=== PATIENT | male | born 1965 | race Caucasian/White ===

== ENCOUNTER 2022-03-27 17:31 | Observation (INO) | payer OTHER, SELFPAY ==
[2022-03-27] VITALS (7 sets, daily range): BP systolic 114–140; BP diastolic 63–70; PULSE 71–87; RESP 16; TEMP 36.8; O2SAT 93–100; BMI 36.7
--- NOTE | 2022-03-27 18:08 | ED_ITS ---
HPI - Fall General Chief Complaint: Fall Stated Complaint: Fall, back pain, bone cancer Time Seen by Provider: 03/27/22 18:04 Source: patient Mode of arrival: EMS History of Present Illness HPI Narrative: 56-year-old male former smoker presents by EMS for evaluation of back pain after a fall. He states that he had been seen and evaluated at an outside facility about 1 week ago after falling and suffering significant pain in his back. Per the patient he had imaging which demonstrated an L4 fracture that was thought to be related to possibility of cancer is bone. He is in the process of evaluating this it and today was walking in his garage and had brief episode of a spasm in his low back which caused him to fall onto his knees, he had an episode of back pain again but is largely controlled. He has no head, and neck injury. He has no prodromal symptoms contributing to the fall such as dizziness, weakness or lightheadedness. He denies chest pain or shortness of breath. He has no fever or chills and takes no blood thinners. He denies loss of control of bowel or bladder. He denies any lower extremity weakness Related Data Allergies Allergy/AdvReac Type Severity Reaction Status Date / Time No Known Drug Allergies Allergy Verified 03/27/22 17:44 Review of Systems Review of Systems Narrative: GENERAL: Denies chills, fatigue, malaise, fever, sweats. HEENT: Denies sinus pain, ear pain, sore throat, difficulty swallowing, dizziness. RESPIRATORY: Denies dyspnea, cough, wheezing, hemoptysis, sputum. CARDIOVASCULAR: Denies chest pain, palpitations, orthopnea, edema, GASTROINTESTINAL: Denies nausea, vomiting, abdominal pain, diarrhea, constipation, melena. : Denies dysuria, frequency, incontinence, hematuria, urinary retention. MUSCULOSKELETAL: See HPI SKIN: Denies rash, skin lesions, or other NEUROLOGIC: Denies weakness, headache, numbness, change in speech, confusion, seizures, incoordination. PSYCHIATRIC: No concerning psychosocial issues. 12 point review of systems is negative except for those stated above Patient History Social History Smoking Status: Former smoker Smoking Status: Former smoker Substance Use Type: does not use Exam Narrative Exam Narrative: GENERAL: [56] year old patient appears stated age. Well-developed patient, in mild distress. HEAD: Atraumatic. Normocephalic. EYES: Pupils equal round and reactive. Extraocular motions intact. No scleral icterus. No injection or drainage. ENT: Nose without bleeding, purulent drainage. Throat without erythema, tonsillar hypertrophy or exudate. Airway patent. NECK: Trachea midline. Non tender CARDIOVASCULAR: Regular rate and rhythm without murmurs, gallops, or rubs. RESPIRATORY: Clear to auscultation. Breath sounds equal bilaterally. No wheezes, rales, or rhonchi. GASTROINTESTINAL: Abdomen soft, non-tender, nondistended. EXTREMITIES: No edema or joint tenderness. BACK: Midline tenderness in the lower lumbar region, no step-offs or crepitance, no saddle anesthesia, sensory deficits or lower extremity weakness, patellar reflexes 1+ bilaterally NEURO: AOx3. SKIN: No rash or erythema of visible areas Initial Vital Signs Initial Vital Signs: Vital Signs Temperature 98.2 F 03/27/22 17:31 Pulse Rate 78 03/27/22 17:31 Respiratory Rate 16 03/27/22 17:31 Blood Pressure 114/65 03/27/22 17:31 Pulse Oximetry 93 03/27/22 17:31 Course Orders Ordered: ED Orders 03/27/22 17:46 Complete Blood Count AUTO DIFF Stat Comprehensive Metabolic Panel Stat 03/27/22 18:18 CT lumbar spine wo con Stat CT pelvis wo con Stat 03/27/22 21:56 COVID19 -Nasal RAPID/Pre-Proc Stat Discontinued Medications Diazepam (Diazepam 10 Mg/2 Ml Syringe) 2 mg IV NOW ONE Stop: 03/27/22 20:57 Last Admin: 03/27/22 21:10 Dose: 2 mg Documented by: JAMES Hydromorphone HCl (Hydromorphone 1 Mg Inj) 1 mg IV NOW ONE Stop: 03/27/22 18:34 Last Admin: 03/27/22 18:35 Dose: 1 mg Documented by: RLAZANI Hydromorphone HCl (Hydromorphone 1 Mg Inj) 1 mg IV NOW ONE Stop: 03/27/22 19:14 Last Admin: 03/27/22 19:17 Dose: 1 mg Documented by: RLAZANI Hydromorphone HCl (Hydromorphone 1 Mg Inj) 1 mg IV NOW ONE Stop: 03/27/22 23:18 Last Admin: 03/27/22 23:20 Dose: 1 mg Documented by: JAMES Vital Signs Vital signs: Vital Signs - 8 hr 03/27/22 17:31 03/27/22 18:31 03/27/22 18:37 Temperature 98.2 F Pulse Rate 78 86 85 Respiratory Rate 16 Blood Pressure 114/65 126/70 Pulse Oximetry 93 100 99 03/27/22 19:00 03/27/22 19:30 03/27/22 20:00 Temperature Pulse Rate 84 87 71 Respiratory Rate Blood Pressure 130/64 137/63 140/67 Pulse Oximetry 100 99 98 03/27/22 20:30 Temperature Pulse Rate 82 Respiratory Rate Blood Pressure 140/68 Pulse Oximetry 99 MDM - Fall Lab Data Result diagrams: 03/27/22 17:46 03/27/22 17:46 Labs: Lab Results 03/27/22 03/27/22 03/27/22 Range/Units 17:46 17:46 21:56 WBC 12.3 H (4.5-11.0) X10^3/uL RBC 3.73 L (4.5-5.9) X10^6/uL Hgb 11.4 L (13.5-17.5) g/dL Hct 33.9 L (41-53) % MCV 90.8 (80-100) fL MCH 30.6 (26-34) PG MCHC 33.7 (30-36) % RDW 19.4 H (11.6-14.8) % Plt Count 250 (150-400) X10^3/uL Neut % (Auto) Not Reportable Lymph % (Auto) Not Reportable [place] % (Auto) Not Reportable Eos % (Auto) Not Reportable Baso % (Auto) Not Reportable Lymph # (Auto) Not Reportable [place] # (Auto) Not Reportable Baso # (Auto) Not Reportable Total Counted 100 Seg Neutrophils % 36.0 L (38-70) % Band Neutrophils % 9.0 H (3-7) % Lymphocytes % (Manual) 41.0 (25-45) % Monocytes % (Manual) 9.0 (2-11) % Eosinophils % (Manual) 2.0 (2-4) % Metamyelocytes % 2.0 H (-0) % Myelocytes % 1.0 H (-0) % Neutrophils # (Manual) 5535 (2752-1268) /uL RBC Morphology See below Anisocytosis 2+ H Sodium 136 L (137-145) mmol/L Potassium 4.3 (3.4-5.1) mmol/L Chloride 106 (98-107) mmol/L Carbon Dioxide 21 L (22-32) mmol/L BUN 21 H (9-20) mg/dL Creatinine 0.93 (0.66-1.25) mg/dL Estimated GFR > 60 (>60) mL/min BUN/Creatinine Ratio 22.6 H (6-22) Glucose 102 H (70-100) mg/dL Calcium 8.5 (8.4-10.2) mg/dL Total Bilirubin 0.5 (0.2-1.3) mg/dL AST 33 (17-59) IU/L ALT 32 (<50) IU/L Alkaline Phosphatase 59 (38-126) U/L Total Protein 12.2 H (6.3-8.2) g/dL Albumin 4.0 (3.5-5.0) g/dL Globulin 8.2 H (1.7-4.1) g/dL Albumin/Globulin Ratio 0.5 L (1.0-2.8) SARS-CoV-2 (PCR) Negative (Negative) Imaging Data Lumbar CT: Radiologist's Impression: [place] [address] CT Scan Report Signed Patient: Ang Metcalf MR#: [id number] : 1965 Acct:[id number] Age/Sex: 56 / M Date of Service: 03/27/22 Loc: ED Accession Number: [id number] ?? Procedure: CT lumbar spine wo con Ordering Provider: Paul Watkins D.O. PROCEDURE:? CT LUMBAR SPINE WO CON ? INDICATIONS:? fall with back pain, report of pathologic fracture ? TECHNIQUE:? Noncontrast 3 mm thick sections acquired from the T12 level to the sacrum.? Sagittal and coronal reformats were constructed.? For radiation dose reduction, the following was used:? automated exposure control.? ? COMPARISON:? None. ? FINDINGS:? Diffuse abnormal appearance of the bone marrow with decreased mineralization and trabeculation.? There are innumerable small lytic lesions as well as a few larger lytic lesions for example in the anterior L4 vertebral body.? Adjacent to this anterior L4 vertebral body lesion there is Schmorl node with an area of full-thickness cortical destruction and cortical defect as well what appears to be a displaced cortical fragment. ?Findings are suspicious for pathologic fracture.? Vertebral body heights are otherwise maintained.? Angulation of the right L3 transverse process may represent a fracture but appears to be remote regional soft tissues are unremarkable absence of IV contrast.? Aortic atherosclerosis. ? ? IMPRESSION:? ? Diffusely abnormal appearance of the bone marrow suggestive of metastatic disease or potentially multiple.? Numerous discrete lytic lesions are presumed to represent metastatic disease.? There is an acute pathologic fracture suspected involving the inferior L4 endplate to adjacent to a prominent lytic lesion.? ? Dictated by: Cyrus Rainey M.D. on 03/27/2022 at 19:57 ? ? Approved by: Cyrus Rainey M.D. on 03/27/2022 at 20:01 ? CT scan - abdomen/pelvis: Radiologist's Impression: [place] [address] CT Scan Report Signed Patient: Ang Metcalf MR#: [id number] : 1965 Acct:[id number] Age/Sex: 56 / M Date of Service: 03/27/22 Loc: ED Accession Number: [id number] ?? Procedure: CT pelvis wo con Ordering Provider: Paul Watkins D.O. PROCEDURE:? CT PEL WO CON ? INDICATIONS:? fall with pathologic fracture of L4 ? TECHNIQUE:? After the administration of oral contrast, 5 mm thick sections acquired from the iliac crests to the symphysis.? 5 mm coronal and sagittal reformats were then perf ormed.? For radiation dose reduction, the following was used:? automated exposure control, adjustment of mA and/or kV according to patient size.? ? COMPARISON:? None. ? FINDINGS:? L4 inferior endplate fracture with pathologic lesion, described greater detail in the lumbar spine CT report.? The bony pelvic ring appears intact with no evidence of pelvic fracture or proximal femur fracture regional soft tissues are within limits. ? IMPRESSION:? No acute fracture in the pelvis.? L4 pathologic fracture described in greater detail on the lumbar spine CT report. ? ? Dictated by: Cyrus Rainey M.D. on 03/27/2022 at 20:02 ? ? Approved by: Cryus Rainey M.D. on 03/27/2022 at 20:03 ? [facility] Narrative Medical decision making narrative: 56-year-old male with known pathologic fracture of L4 has been referred but has not yet seen anybody for tissue diagnosis or definitive management presents to us because of a fall today as a consequence of this pain. He has no neurologic symptoms such as loss of control of bowel or bladder, numbness, tingling or weakness of his lower extremities. He has been referred to Oncology at [facility]. He was diverted here by EMS as the closest facility did not have access to Orthopedic surgery. Is images confirmed the diagnosis that was related to us, there are no findings suggesting a neurologic or orthopedic surgical emergency, however despite our best efforts with various medications he is unable to sit up and get off the car due to pain let alone ambulate. He will have to be admitted for pain control Discharge Plan Departure Patient Disposition: Admitted as Observation Clinical Impression: Compression fx, lumbar spine, Pathologic compression fracture of lumbar vertebra Admit Date/Time: 03/27/22 22:58 Admit Provider: Yamilka Rios
--- NOTE | 2022-03-27 18:18 | DI.CT.S_ITS ---
PROCEDURE: CT PEL WO CON INDICATIONS: fall with pathologic fracture of L4 TECHNIQUE: After the administration of oral contrast, 5 mm thick sections acquired from the iliac crests to the symphysis. 5 mm coronal and sagittal reformats were then performed. For radiation dose reduction, the following was used: automated exposure control, adjustment of mA and/or kV according to patient size. COMPARISON: None. FINDINGS: L4 inferior endplate fracture with pathologic lesion, described greater detail in the lumbar spine CT report. The bony pelvic ring appears intact with no evidence of pelvic fracture or proximal femur fracture regional soft tissues are within limits. IMPRESSION: No acute fracture in the pelvis. L4 pathologic fracture described in greater detail on the lumbar spine CT report. Dictated by: Cyrus Rainey M.D. on 03/27/2022 at 20:02 Approved by: Cyrus Rainey M.D. on 03/27/2022 at 20:03
--- NOTE | 2022-03-27 18:18 | DI.CT.S_ITS ---
PROCEDURE: CT LUMBAR SPINE WO CON INDICATIONS: fall with back pain, report of pathologic fracture TECHNIQUE: Noncontrast 3 mm thick sections acquired from the T12 level to the sacrum. Sagittal and coronal reformats were constructed. For radiation dose reduction, the following was used: automated exposure control. COMPARISON: None. FINDINGS: Diffuse abnormal appearance of the bone marrow with decreased mineralization and trabeculation. There are innumerable small lytic lesions as well as a few larger lytic lesions for example in the anterior L4 vertebral body. Adjacent to this anterior L4 vertebral body lesion there is Schmorl node with an area of full-thickness cortical destruction and cortical defect as well what appears to be a displaced cortical fragment. Findings are suspicious for pathologic fracture. Vertebral body heights are otherwise maintained. Angulation of the right L3 transverse process may represent a fracture but appears to be remote regional soft tissues are unremarkable absence of IV contrast. Aortic atherosclerosis. IMPRESSION: Diffusely abnormal appearance of the bone marrow suggestive of metastatic disease or potentially multiple. Numerous discrete lytic lesions are presumed to represent metastatic disease. There is an acute pathologic fracture suspected involving the inferior L4 endplate to adjacent to a prominent lytic lesion. Dictated by: Cyrus Rainey M.D. on 03/27/2022 at 19:57 Approved by: Cyrus Rainey M.D. on 03/27/2022 at 20:01
[2022-03-27] MEDS: HYDROMORPHONE 1 MG INJ IV ×3 (18:35→23:20)
--- NOTE | 2022-03-27 20:39 | PC.NURSE ---
Pt laying supine and flat in bed, educated pt on ambulation trial per Dr. Watkins order. Pt pressed button to to elevate head of bed, elevated less than an inch and pt screamed in pain, body noted to tense, and pt lowered head of bed. Pt reports excruciating pain with attempt and expressed concern for ambulation attempt. Dr. Watkins notified.
[2022-03-27] MEDS: diazePAM 10 MG/2 ML SYRINGE 2 MG IV (21:10)
--- NOTE | 2022-03-27 21:49 | PC.NURSE ---
Attempted to get patient up for ambulation trial, cannot even move in bed without pain. Notified provider.
[2022-03-27 22:16] LABS: Alanine Aminotransferase 32 IU/L (<50); Alkaline Phosphatase 59 U/L (38-126); Aspartate Aminotransferase 33 IU/L (17-59); BUN Creatinine Ratio 22.6 (6-22); Bilirubin Total 0.5 mg/dL (0.2-1.3); Blood Urea Nitrogen 21 mg/dL (9-20); Calcium 8.5 mg/dL (8.4-10.2); Carbon Dioxide 21 mmol/L (22-32); Chloride 106 mmol/L (98-107); Estimated Glomerular Filt Rate > 60 mL/min (>60); Glucose 102 mg/dL (70-100); Potassium 4.3 mmol/L (3.4-5.1); Sodium 136 mmol/L (137-145)
[2022-03-27 22:20] LABS: Hematocrit 33.9 % (41-53); Hemoglobin 11.4 g/dL (13.5-17.5); Mean Corpuscular HGB Conc 33.7 % (30-36); Mean Corpuscular Hemoglobin 30.6 PG (26-34); Mean Corpuscular Volume 90.8 fL (80-100); Platelet Count 250 X10^3/uL (150-400); Red Blood Cell Count 3.73 X10^6/uL (4.5-5.9); Red Cell Distribution Width 19.4 % (11.6-14.8); White Blood Cell Count 12.3 X10^3/uL (4.5-11.0)
[2022-03-27 22:26] LABS: Add Manual Diff / Slide Review YES
[2022-03-27 22:27] LABS: Albumin Globulin Ratio 0.5 (1.0-2.8); Globulin 8.2 g/dL (1.7-4.1)
[2022-03-27 22:28] LABS: HEMOLYSIS 59 (0-50)
[2022-03-27 22:38] LABS: Total Protein 12.2 g/dL (6.3-8.2)
[2022-03-27 23:00] LABS: COVID19 -Nasal RAPID Negative (Negative)
[2022-03-27 23:39] LABS: Total Cells Counted 100
[2022-03-27 23:40] LABS: Anisocytosis 2+; Neutrophils Absolute Manual 5535 /uL (3000-5900)
[2022-03-28 00:19] VITALS: BP 149/88; PULSE 98; RESP 17; TEMP 36; O2SAT 90
--- NOTE | 2022-03-28 00:56 | P.HP_ITS ---
History of Present Illness History of Present Illness Date Patient Seen: 03/28/22 Time Patient Seen: 00:15 Chief complaint: Fall, back pain, bone cancer Narrative: Ang Metcalf is a 56 y.o. male who takes medications for hypertension, hld, and diabetes type 2, recently diagnosed with bone cancer was out in his garage when he got up to go to the bathroom when he felt a spasm in his back, fell to his knees and was unable to get up. ED reportedly tried to provide pain management with the hopes of discharging him back to home, but he was unable to ambulate. Back imaging performed at [facility] indicated lytic lesions in his lumbar spine per the ED provider, and he states was referred to an oncologist in [place], but does not recall the name. He was to go for his first appointment this coming Sunday. Patient does endorse having a lot of lumbar back pain and spasming. He denies headaches, difficulty swallowing, shortness of breath, chest pain, nausea or vomiting, abdominal pain, changes in bladder or bowel control, though he does endorse having occasional constipation, numbing or tingling of his upper lower extremities. He does not know how well his diabetes is controlled. He states that he relies on his to understand his health problems and directions for care. CT of the lumbar spine reported diffusely abnormal appearance to the bone marrow suggestive of metastatic disease, numerous discrete lytic lesions and an acute pathologic fracture involving the inferior L4 endplate adjacent to a prominent lytic lesion. Pelvis CT did not indicate any additional lytic lesions or abnormalities. Patient is afebrile, blood pressure 149/88, heart rate 98, respiratory rate 17, oxygen saturation of 90% on room air, he weighs 116.2 kg with a BMI of 36.7. He has a mildly elevated white count of 12.3, hemoglobin and hematocrit were 11.4 and 33.9 respectively, he does have a bandemia of 9%, abnormal peripheral smear, sodium 136, bicarb 21, glucose 102, A1c is 7.4, total protein was 12.2, globulin 8.2, and the ratio was 0.5, COVID-19 PCR was negative. Patient History Medical History Diabetes type 2, controlled Family & Social History Family history unavailable: Yes (Adopted.) Safety & Behavioral: Feels Safe in Current Yes Environment Been Physically Hurt or No Threatened By a Person Tobacco & Substance use: Smoking Status Former smoker, quit mid January 2022 Substance Use Type does not use Meds Home Medications and Allergies Allergies Allergy/AdvReac Type Severity Reaction Status Date / Time No Known Drug Allergies Allergy Verified 03/27/22 17:44 Review of Systems Review of Systems ROS: Yes All systems reviewed with the patient and are negative except as otherwise documented Exam Vital Signs (past 8 hours): - 03/27/22 17:31 03/27/22 18:31 03/27/22 18:37 Temperature 98.2 F Pulse Rate 78 86 85 Respiratory Rate 16 Blood Pressure 114/65 126/70 Pulse Oximetry 93 100 99 03/27/22 19:00 03/27/22 19:30 03/27/22 20:00 Temperature Pulse Rate 84 87 71 Respiratory Rate Blood Pressure 130/64 137/63 140/67 Pulse Oximetry 100 99 98 03/27/22 20:30 03/28/22 00:19 Temperature 96.8 F L Pulse Rate 82 98 H Respiratory Rate 17 Blood Pressure 140/68 149/88 H Pulse Oximetry 99 90 L Oxygen Delivery Method Room Air Objective Labs Result Diagrams: 03/27/22 17:46 03/27/22 17:46 Labs: Laboratory Results - last 24 hr 03/27/22 03/27/22 03/27/22 17:46 17:46 21:56 WBC 12.3 H RBC 3.73 L Hgb 11.4 L Hct 33.9 L MCV 90.8 MCH 30.6 MCHC 33.7 RDW 19.4 H Plt Count 250 Neut % (Auto) Not Reportable Lymph % (Auto) Not Reportable [place] % (Auto) Not Reportable Eos % (Auto) Not Reportable Baso % (Auto) Not Reportable Lymph # (Auto) Not Reportable [place] # (Auto) Not Reportable Baso # (Auto) Not Reportable Total Counted 100 Seg Neutrophils % 36.0 L Band Neutrophils % 9.0 H Lymphocytes % (Manual) 41.0 Monocytes % (Manual) 9.0 Eosinophils % (Manual) 2.0 Metamyelocytes % 2.0 H Myelocytes % 1.0 H Neutrophils # (Manual) 5535 RBC Morphology See below Anisocytosis 2+ H Sodium 136 L Potassium 4.3 Chloride 106 Carbon Dioxide 21 L BUN 21 H Creatinine 0.93 Estimated GFR > 60 BUN/Creatinine Ratio 22.6 H Glucose 102 H Calcium 8.5 Total Bilirubin 0.5 AST 33 ALT 32 Alkaline Phosphatase 59 Total Protein 12.2 H Albumin 4.0 Globulin 8.2 H Albumin/Globulin Ratio 0.5 L SARS-CoV-2 (PCR) Negative Assessment & Plan Assessment & Plan narrative: Ang Metcalf is observed overnight for pain control associated with bone cancer. 1. Recent and new diagnosis of bone cancer, acute, present on admission * Pain control with scheduled Tylenol, IV morphine, and Percocet * Oral diazepam for spasms as needed * Attempt [facility] to find out which oncologist he was referred to * In absence of a local oncologist will need to refer to Oncology group here at [facility] 2. Diabetes type 2 with poor control * Start glargine 5 units in the morning with low dose correctional scale insulin * Carb controlled diet 3. Essential hypertension, chronic * Continue home doses of losartan 100 mg p.o. daily, and metoprolol succinate 100 mg p.o. daily 4. Dyslipidemia, chronic * Continue home dose of atorvastatin 10 mg p.o. at bedtime VTE Prophylaxis: Wells risk score 2.5[X]Enoxaparin 40 mg subQ once daily Bilateral SCDs Patient is placed into observation as his stay is not expected to exceed 2 midnights. FEN: IV fluids: saline lock, diet: carb controlled, labs: CBC, C/BMP, liver enzymes, [facility] None care and involvement in the patient?s care is appreciated. Dispo: Probable discharge to home Code status: full code as discussed with the patient who identifies his , Juju Metcalf as his surrogate and POA. [X] I have utilized all available immediate resources to obtain, update, or review of the patient's current medications Scores Wells' Criteria for PE Clinical signs and symptoms of DVT: No PE is #1 Dx or equally likely: No Heart rate > 100: Yes Immobilization at least 3 days or surg in previous 4 weeks: No History of PE or DVT: No Hemoptysis: No Malignancy w/Treatment within 6 months or palliative: Yes Wells' PE Score total: 2.5 Quality VTE Deep Vein Thrombosis/Pulmonary Embolism Present on Admission: No MIPS - Admit I confirm the patient?s Advance Care Plan is present, Code status is documented, Surrogate decision maker is in patient?s record [If Yes, STOP here]: Yes MIPS - DC The patient has current or prior documentation of left ventricular ejection fraction (LVEF) less than 40%, or moderate or severely depressed left ventric ular systolic function.: No
[2022-03-28] MEDS: diazePAM 5 MG TABLET PO ×4 (02:01→20:39)
[2022-03-28] MEDS: OXYCODONE/ACETAMINOPHEN 5/325 TABLET 2 TAB PO ×2 (02:01→09:00)
[2022-03-28 02:12] LABS: Hemoglobin A1C% w Est Avg Glu 7.4 % (4.0-6.0)
[2022-03-28] MEDS: ACETAMINOPHEN 325 MG TABLET 650 MG PO ×3 (05:07→23:46)
[2022-03-28] MEDS: TRAMADOL 50 MG TABLET PO ×2 (05:07→14:11)
--- NOTE | 2022-03-28 06:09 | PC.NURSE ---
Pt arrived from ED in pain, pt was medicated before leaving ED. Pt cannot tolerate any movement and cries out in pain flailing his arms when moved. Pt was medicated throughout the night, but suffers from back spasms and cries out in pain although all pain meds are on board. Pt is unable to tolerate turning to do skin check at this time. Pt denies any open sores, or rashes. Will pass on information to day shift.
[2022-03-28 06:26] LABS: Alanine Aminotransferase 33 IU/L (<50); Albumin 4.1 g/dL (3.5-5.0); Alkaline Phosphatase 75 U/L (38-126); Aspartate Aminotransferase 31 IU/L (17-59); Bilirubin Total 0.5 mg/dL (0.2-1.3); Bilirubin Unconjugated 0.3 mg/dL (0.0-1.1); HEMOLYSIS < 15 (0-50)
[2022-03-28 06:43] LABS: Albumin Globulin Ratio 0.5 (1.0-2.8); Globulin 8.4 g/dL (1.7-4.1); Total Protein 12.5 g/dL (6.3-8.2)
[2022-03-28 08:00] VITALS: BP 147/98; PULSE 102; RESP 18; TEMP 35.9; O2SAT 96
--- NOTE | 2022-03-28 08:28 | DI.MRI.S_ITS ---
PROCEDURE: MR LUMBAR SPINE WO/W CON INDICATIONS: l4 fracture, epidural/spinal cord involved? TECHNIQUE: Noncontrast sagittal T1 spin echo and T2 fast spin echo, sagittal STIR, axial T1 and T2 fast spin echo through the lumbar spine. In cases with scoliosis, additional coronal T2 fast spin echo may be performed. After the administration of contrast, sagittal and axial T1 spin echo with fat saturation through the lumbar spine. COMPARISON: [facility], CT, CT LUMBAR SPINE WO CON, 03/27/2022, 19:13. FINDINGS: Enhancing low T1 marrow signal intensity focus in the anterior L4 vertebral body is consistent with an underlying pathologic lesion. There is disruption of the inferior endplate centered on a Schmorl node adjacent to the lesion, likely representing a pathologic fracture. Only mild bone marrow edema is present. When compared with the examination performed yesterday, there appears to be new vertebral body height loss at T12 with suggestion of low T1/T2 signal intensity fracture lines in the T12 vertebral body as well as some low-level edema and enhancement. Findings are suspicious for an additional pathologic fracture. No spinal canal or neural foraminal stenosis at any level in the lumbar spine. No pathologic epidural enhancement appreciated. IMPRESSION: No spinal canal stenosis, neural foraminal stenosis, or abnormal epidural enhancement. Enhancing presumed metastatic disease in the L4 vertebral body with an associated pathologic fracture. Probable mild pathologic fracture in the T12 vertebral body, new from yesterday. Dictated by: Cyrus Rainey M.D. on 03/28/2022 at 16:02 Approved by: Cyrus Rainey M.D. on 03/28/2022 at 16:07
[2022-03-28] MEDS: ENOXAPARIN 40 MG/0.4 ML SYRINGE SUBCUT (09:00)
[2022-03-28] MEDS: DOCUSATE 100 MG CAPSULE PO ×2 (09:00→20:39)
[2022-03-28 09:11] VITALS: O2SAT 93
--- NOTE | 2022-03-28 09:35 | CM.DANOTE ---
Patient is a 56 yo male who was admitted on 03/27/22 for Fall/Pain/Bone CA. Pt has REG PPO for insurance and his PCP is Reyna Shaver. EMR was reviewed. Per MD, pt with hx of hypertension, diabetes type 2, and recent bone CA dx. Pt admitted for intractable pain, lesion in back, spasms, and inability to ambulate. Pt was referred from [facility] to Oncology in [place] and pt has his first appointment scheduled this week tomorrow Wed to determine POC and tx options. SW attempted to meet with pt but Imaging in room bedside explaining upcoming MRI later today. Pt lives in [place] with his spouse and is typically independent with ADL's. Plan: SW to follow closely for MRI results and bedside assessment towards determining possible PT eval and discharge needs. 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 No Advance Directives on File No History Provided By Patient,Significant Other, Medical Record Has Patient been admitted in last 30 No days? Prior Living Arrangements Apartment/Condo Household Members spouse Type of transporation used prior to Drives own vehicle admit Independent with ADL's Yes Is patient alert and oriented? Yes Needs Assistance With Home Chores / Shopping Caregiver for Another No Comment Pending pain management and PT eval Barriers to Discharge Yes Comment Pain control and ability to ambulate Discharge Plan Home Transportation Arrangement Spouse can transport at d/c Additional Comment Pending progress and needs Whiteboard Updated in Patient Room with Yes name and ext. # of Cloth Dye Range Operator Review Status In Process Please Provide Date Initial DC 03/28/22 Assessment Was Performed Next Review Type Continued Stay Review
[2022-03-28] MEDS: MORPHINE 4 MG/ML INJ IV ×3 (17:09→23:45)
[2022-03-28 19:00] VITALS: O2SAT 95
[2022-03-28] MEDS: dexAMETHasone 4 MG TABLET 20 MG PO (19:15)
[2022-03-28 19:27] VITALS: O2SAT 95
--- NOTE | 2022-03-28 19:57 | PM.PN.1 ---
Subjective Subjective Date Patient Seen: 03/28/22 Time Patient Seen: 08:00 Interval history: His pain control is quite poor. He has pain in the center of his spine over his vertebra. No leg weakness, no saddle anesthesia, no incontinence. Exam Vital Signs (past 8 hours): - 03/28/22 19:27 Pulse Oximetry 95 Oxygen Delivery Method Room Air Oxygen Flow Rate 2 Narrative Exam Narrative: GEN: no acute distress CV: regular rate and rhythm PULM: clear bilaterally ABD: soft, nontender, nondistended, no organomegaly BACK: tender to palpation over spine in mid back and lower back Objective Labs Result Diagrams: 03/27/22 17:46 03/27/22 17:46 Labs: Laboratory Results - last 24 hr 03/27/22 03/27/22 03/27/22 17:46 17:46 17:46 WBC 12.3 H RBC 3.73 L Hgb 11.4 L Hct 33.9 L MCV 90.8 MCH 30.6 MCHC 33.7 RDW 19.4 H Plt Count 250 Neut % (Auto) Not Reportable Lymph % (Auto) Not Reportable Delta % (Auto) Not Reportable Eos % (Auto) Not Reportable Baso % (Auto) Not Reportable Lymph # (Auto) Not Reportable [place] # (Auto) Not Reportable Baso # (Auto) Not Reportable Total Counted 100 Seg Neutrophils % 36.0 L Band Neutrophils % 9.0 H Lymphocytes % (Manual) 41.0 Monocytes % (Manual) 9.0 Eosinophils % (Manual) 2.0 Metamyelocytes % 2.0 H Myelocytes % 1.0 H Neutrophils # (Manual) 5535 RBC Morphology See below Anisocytosis 2+ H Sodium 136 L Potassium 4.3 Chloride 106 Carbon Dioxide 21 L BUN 21 H Creatinine 0.93 Estimated GFR > 60 BUN/Creatinine Ratio 22.6 H Glucose 102 H Hemoglobin A1c 7.4 H Calcium 8.5 Total Bilirubin 0.5 Conjugated Bilirubin Unconjugated Bilirubin AST 33 ALT 32 Alkaline Phosphatase 59 Total Protein 12.2 H Albumin 4.0 Globulin 8.2 H Albumin/Globulin Ratio 0.5 L SARS-CoV-2 (PCR) 03/27/22 03/28/22 21:56 04:54 WBC RBC Hgb Hct MCV MCH MCHC RDW Plt Count Neut % (Auto) Lymph % (Auto) Delta % (Auto) Eos % (Auto) Baso % (Auto) Lymph # (Auto) Delta # (Auto) Baso # (Auto) Total Counted Seg Neutrophils % Band Neutrophils % Lymphocytes % (Manual) Monocytes % (Manual) Eosinophils % (Manual) Metamyelocytes % Myelocytes % Neutrophils # (Manual) RBC Morphology Anisocytosis Sodium Potassium Chloride Carbon Dioxide BUN Creatinine Estimated GFR BUN/Creatinine Ratio Glucose Hemoglobin A1c Calcium Total Bilirubin 0.5 Conjugated Bilirubin 0.0 Unconjugated Bilirubin 0.3 AST 31 ALT 33 Alkaline Phosphatase 75 Total Protein 12.5 H Albumin 4.1 Globulin 8.4 H Albumin/Globulin Ratio 0.5 L SARS-CoV-2 (PCR) Negative [facility] Medical History Diabetes type 2, controlled Social History household members: spouse Smoking Status: Former smoker Assessment & Plan Assessment & Plan narrative: 1. Metastatic cancer with intractable back pain -likely multiple myeloma as primary -patient with plan for bone biopsy tomorrow 03/29 if can discharge in time -will try to get pain controlled with opiates, nsaids, diazepam -add dexamethasone per discussion with oncology, per onc still will get satisfactory biopsy -PT ordered 2. Type 2 diabetes -continue insulin -diabetic diet 3. Hypertension -continue losartan and metoprolol Time Spent With Patient Critical Care time: I spent a total of [] minutes of critical care time on this patient's care today; this time is exclusive of procedural time. Quality VTE Deep Vein Thrombosis/Pulmonary Embolism Present on Admission: No
[2022-03-28 20:23] VITALS: BP 149/94; PULSE 101; RESP 16; TEMP 36.1; O2SAT 95
[2022-03-28] MEDS: SENNOSIDES 8.6 MG TABLET 17.2 MG PO (20:39)
[2022-03-29] MEDS: OXYCODONE/ACETAMINOPHEN 5/325 TABLET 2 TAB PO ×2 (01:11→08:27)
[2022-03-29] MEDS: MORPHINE 4 MG/ML INJ IV (02:40)
[2022-03-29 04:59] LABS: Hematocrit 34.4 % (41-53); Hemoglobin 11.7 g/dL (13.5-17.5); Mean Corpuscular HGB Conc 34.1 % (30-36); Mean Corpuscular Volume 90.8 fL (80-100); Platelet Count 238 X10^3/uL (150-400); Red Blood Cell Count 3.79 X10^6/uL (4.5-5.9); Red Cell Distribution Width 19.1 % (11.6-14.8); White Blood Cell Count 12.5 X10^3/uL (4.5-11.0)
[2022-03-29 05:03] LABS: Add Manual Diff / Slide Review YES
[2022-03-29 05:19] LABS: BUN Creatinine Ratio 26.3 (6-22); Blood Urea Nitrogen 25 mg/dL (9-20); Calcium 9.2 mg/dL (8.4-10.2); Carbon Dioxide 21 mmol/L (22-32); Chloride 101 mmol/L (98-107); Estimated Glomerular Filt Rate > 60 mL/min (>60); Glucose 185 mg/dL (70-100); HEMOLYSIS < 15 (0-50); Magnesium 1.9 mg/dL (1.6-2.3); Potassium 4.6 mmol/L (3.4-5.1); Sodium 132 mmol/L (137-145)
[2022-03-29 05:20] LABS: Alanine Aminotransferase 30 IU/L (<50); Albumin 4.1 g/dL (3.5-5.0); Alkaline Phosphatase 72 U/L (38-126); Aspartate Aminotransferase 27 IU/L (17-59); Bilirubin Total 0.6 mg/dL (0.2-1.3); Bilirubin Unconjugated 0.5 mg/dL (0.0-1.1); HEMOLYSIS < 15 (0-50)
[2022-03-29 05:28] LABS: Albumin Globulin Ratio 0.5 (1.0-2.8); Globulin 8.5 g/dL (1.7-4.1); Total Protein 12.6 g/dL (6.3-8.2)
[2022-03-29] MEDS: ACETAMINOPHEN 325 MG TABLET 650 MG PO (05:38)
[2022-03-29 06:40] LABS: Neutrophils Absolute Manual 7000 /uL (3000-5900); Total Cells Counted 100
[2022-03-29 06:41] LABS: Anisocytosis 2+
[2022-03-29 06:50] LABS: Nucleated Red Blood Cells 1 #/Diff
[2022-03-29 07:00] VITALS: BP 128/97; PULSE 99; RESP 16; TEMP 36.1; O2SAT 93
--- NOTE | 2022-03-29 07:35 | PM.DS.1 ---
History of Present Illness History of Present Illness Date Patient Seen: 03/29/22 Time Patient Seen: 07:35 Chief complaint: Fall, back pain, bone cancer Narrative: Per OLIVIA Correa: Ang Metcalf is a 56 y.o. male who takes medications for hypertension, hld, and diabetes type 2, recently diagnosed with bone cancer was out in his garage when he got up to go to the bathroom when he felt a spasm in his back, fell to his knees and was unable to get up. ED reportedly tried to provide pain management with the hopes of discharging him back to home, but he was unable to ambulate. Back imaging performed at [facility] indicated lytic lesions in his lumbar spine per the ED provider, and he states was referred to an oncologist in [place], but does not recall the name. He was to go for his first appointment this coming Sunday.? Patient does endorse having a lot of lumbar back pain and spasming.? He denies headaches, difficulty swallowing, shortness of breath, chest pain, nausea or vomiting, abdominal pain, changes in bladder or bowel control, though he does endorse having occasional constipation, numbing or tingling of his upper lower extremities.? He does not know how well his diabetes is controlled.? He states that he relies on his to understand his health problems and directions for care. CT of the lumbar spine reported diffusely abnormal appearance to the bone marrow suggestive of metastatic disease, numerous discrete lytic lesions and an acute pathologic fracture involving the inferior L4 endplate adjacent to a prominent lytic lesion.? Pelvis CT did not indicate any additional lytic lesions or abnormalities.? Patient is afebrile, blood pressure 149/88, heart rate 98, respiratory rate 17, oxygen saturation of 90% on room air, he weighs 116.2 kg with a BMI of 36.7.? He has a mildly elevated white count of 12.3, hemoglobin and hematocrit were 11.4 and 33.9 respectively, he does have a bandemia of 9%, abnormal peripheral smear, sodium 136, bicarb 21, glucose 102, A1c is 7.4, total protein was 12.2, globulin 8.2, and the ratio was 0.5, COVID-19 PCR was negative. Discharge Providers Provider Date of admission: 03/27/22 22:58 Discharge Date: 03/29/22 Primary care physician: OLIVIA Hoyos Consults: 03/28/22 14:25 Consult to Physical Therapy Evaluate & Treat Comment: Physician Instructions: Evaluate and Treat Discharge provider: Gabo Bridges DO Summary Hospital Course Discharge Diagnosis: 1. Metastatic cancer with intractable back pain, improved 2. Type 2 diabetes, chronic 3. Hypertension, chronic 4. Pathologic L4 spinal compression fracture Hospital Course: This is a 56-year-old male admitted with intractable back pain from the emergency room, secondary to a metastatic cancer of unknown primary origin at this time. He had a follow-up planned with Oncology for the day after admission, and over the phone consultation was obtained. He was recommended for a dose of prednisone given probable multiple myeloma. He was also started on IV and oral pain medications. MRI was performed and did not show any impingement or other cord pathology, but did show a pathologic L4 compression fracture which may be contributing to the patient's symptoms. The day after admission, his pain was much improved. He was discharged on a fentanyl patch, as well as as needed oxycodone with further adjustments to be made with his outpatient care team including his PCP and/or oncologists. I do recommend further follow-up with his primary care provider for his diabetes, though no medication changes are recommended at this time. Exam Vital Signs (past 8 hours): Oxygen Delivery Method Room Air Oxygen Flow Rate 0 Narrative Exam Narrative: GEN: no acute distress CV: regular rate and rhythm PULM: clear bilaterally ABD: soft, nontender, nondistended, no organomegaly BACK: tender to palpation over spine in mid back and lower back Objective Labs Result Diagrams: 03/29/22 04:30 03/29/22 04:30 Labs: Laboratory Results - last 24 hr 03/29/22 03/29/22 03/29/22 04:30 04:30 04:30 WBC 12.5 H RBC 3.79 L Hgb 11.7 L Hct 34.4 L MCV 90.8 MCH 31.0 MCHC 34.1 RDW 19.1 H Plt Count 238 Neut % (Auto) Not Reportable Lymph % (Auto) Not Reportable [place] % (Auto) Not Reportable Eos % (Auto) Not Reportable Baso % (Auto) Not Reportable Lymph # (Auto) Not Reportable [place] # (Auto) Not Reportable Baso # (Auto) Not Reportable Total Counted 100 Seg Neutrophils % 53.0 Band Neutrophils % 3.0 Lymphocytes % (Manual) 33.0 Monocytes % (Manual) 3.0 Eosinophils % (Manual) 1.0 L Metamyelocytes % 2.0 H Myelocytes % 5.0 H Neutrophils # (Manual) 7000 H Nucleated RBCs 1 H RBC Morphology See below Anisocytosis 2+ H Sodium 132 L Potassium 4.6 Chloride 101 Carbon Dioxide 21 L BUN 25 H Creatinine 0.95 Estimated GFR > 60 BUN/Creatinine Ratio 26.3 H Glucose 185 H Calcium 9.2 Magnesium 1.9 Total Bilirubin 0.6 Conjugated Bilirubin 0.0 Unconjugated Bilirubin 0.5 AST 27 ALT 30 Alkaline Phosphatase 72 Total Protein 12.6 H Albumin 4.1 Globulin 8.5 H Albumin/Globulin Ratio 0.5 L PFSH Medical History Diabetes type 2, controlled Social History household members: spouse Smoking Status: Former smoker Discharge Plan Discharge Plan Patient Disposition: Home Provider Discharge Comment: You were admitted to the hospital for pain control. Please follow up with Dr. Santoyo as scheduled later today. Discharge orders & Medications Prescriptions: New sennosides [senna] 8.6 mg Tablet 17.2 mg PO BEDTIME 30 Days Qty: 60 0RF acetaminophen 325 mg Tablet 650 mg PO Q6HR 30 Days Qty: 120 0RF oxycodone-acetaminophen 5-325 mg Tablet 2 tab PO Q4HR PRN (Reason: Pain, Severe (7-10)) 7 Days Qty: 40 0RF ibuprofen 600 mg Tablet 600 mg PO Q6HR PRN (Reason: Pain, Moderate (4-6)) 30 Days Qty: 30 0RF fentanyl 25 mcg/hr patch 72 hour 1 patch transdermal Q72H 15 Days Qty: 5 0RF Follow up/Referrals: Luis Carlos Hernandez MD [Non-Staff] - Reyna Shaver ARNP [Primary Care Provider] - Diet/Activity/Treatments Diet: Diet as Tolerated Activity: As tolerated Visit Report/Discharge Packet Instructions: Low Back Pain, How to Prevent Falls Discharge Data Primary Care Provider: Reyna Shaver Attending Provider: Yamilka Rios VTE Deep Vein Thrombosis/Pulmonary Embolism Present on Admission: No
[2022-03-29] MEDS: DOCUSATE 100 MG CAPSULE PO (07:59)
[2022-03-29] MEDS: fentaNYL 25 MCG/PATCH TOP (07:59)
[2022-03-29] MEDS: dexAMETHasone 4 MG TABLET 20 MG PO (07:59)
[2022-03-29] MEDS: INSULIN LISPRO 100 UNIT/ML 3ML VIAL SUBCUT (08:26)
[2022-03-29] MEDS: INSULIN GLARGINE 100 UNIT/ML 3ML PEN SUBCUT (08:26)
--- NOTE | 2022-03-29 09:52 | PC.NURSE ---
applied fentanyl patch to back. DC instruction done by Shabana. pt denied chest pain. CMS+. voiding without difficulty.
--- NOTE | 2022-03-29 10:23 | CM.DPC ---
DCP Cont: Per MD, pt medically stable for discharge home. Pt to follow up with PCP and medications sent with pt. P: Pt discharged home with with following up with [facility] to determine POC and treatment options. Laura Eli RN/DCP
--- NOTE | 2022-03-29 11:29 | PT-IP ANOTE ---
reviewed EMR. checked pt's room for PT and pt not in the room. NAC stated that pt discharged.
== END 2022-03-29 09:07 | disposition home or self-care (01) ==
LOC: ED 22:55 → AC 22:58
PROVIDERS: Admitting Provider Nurse Practitioner Family; Emergency Provider Emergency Medicine; PCP Nurse Practitioner; Visit Provider Nurse Practitioner Family
DX: S32.049A Unspecified fracture of fourth lumbar vertebra, initial encounter for closed fracture (principal); W18.39XA Other fall on same level, initial encounter; C41.9 Malignant neoplasm of bone and articular cartilage, unspecified; I10 Essential (primary) hypertension; E78.5 Hyperlipidemia, unspecified; E11.9 Type 2 diabetes mellitus without complications; Z20.822 Contact with and (suspected) exposure to COVID-19
CPT/HCPCS: 36415; 72131; 72158; 72192; 80048; 80053; 80076; 82962; 83036; 83735; 85007; 85025; 87635; 94760; 96372; 96374; 96375; 96376; 99284; C9803; G0378; A9579; J1170; J1650; J1815; J2270; J3360